=== PATIENT | male | born 1995 | race Caucasian/White ===

== ENCOUNTER 2021-02-27 08:00 | Emergency (ER) | payer OTHER ==
[~2021-02-27 08:00] MED LIST: CARAFATE1 G1 PO
[2021-02-27 09:07] LABS: BASOPHIL 0.2 % (0-2); EOSINOPHIL 3.5 % (0-5); HCT 43.1 % (42.0-52.0); HGB 14.5 g/dl (13.2-18.0); LYMPHOCYTE 33.9 % (15-48); MCH 29.5 pg (25.0-31.0); MCHC 33.6 g/dL (32.0-36.0); MCV 87.6 fL (78.0-100.0); MONOCYTE 10.2 % (0-12); NRBC 0; RBC 4.92 M/uL (4.70-6.00); RDW 12.3 % (11.5-14.0); WBC 4.6 K/uL (4.0-10.5)
[2021-02-27 09:22] LABS: ALBUMIN 4.1 g/dL (3.4-5.0); BILIRUBIN - TOTAL 0.4 mg/dL (0.2-1.0); BUN/CREAT RATIO (CALC) 16.5 RATIO; CREATININE 0.79 mg/dL (0.67-1.17); GLOBULIN (CALCULATION) 3.3 g/dL; POTASSIUM 4.1 mmol/L (3.5-5.1); TOTAL PROTEIN 7.4 g/dL (6.4-8.2)
[2021-02-27 09:27] LABS: MONOSPOT (MONONUCLEOSIS) NEGATIVE (NEGATIVE)
[2021-02-27 10:07] LABS: PLT 229 K/uL (150-400)
[2021-02-27] MEDS ORDERED: AMOXICILLIN500 M2 PO (11:17)
[2021-02-27] MEDS ORDERED: PREDNISONE20 MG PO (11:17)
== END 2021-02-27 11:46 | disposition home or self-care (01) ==
LOC: FER 08:00
PROVIDERS: Emergency Medicine
DX: T78.3XXA Angioneurotic edema, initial encounter (principal)
CPT/HCPCS: 36415; 70491; 80053; 85025; 86308; 87880; J0696; J1100; Q9967